=== PATIENT | female | born 1985 | race African-American/Black ===

== ENCOUNTER → 2016-07-10 | Outpatient (CLI) | payer BC ==
[~2016-07-10] MED LIST: FLEXERIL10 MG PO; MINASTRIN 24 F1 EACH PO; NAPROSYN500 MG PO
== END | disposition home or self-care (01) ==
LOC: RAD 15:00
DX: Z31.41 Encounter for fertility testing (principal); R94.8 Abnormal results of function studies of other organs and systems
CPT/HCPCS: 74740

== ENCOUNTER 2016-10-19 14:49 | Emergency (ER) | payer BC ==
[~2016-10-19] VITALS: Ht 175.3 cm; Wt 100.0 kg
[2016-10-19] MEDS ORDERED: VITAMIN B-6100 MG PO (15:07)
[2016-10-19 16:16] LABS: HEMATOCRIT 40.6 % (36.0-46.0); MCV 87.9 FL (83-99); MEAN PLAT.VOLUME 8.5 uM^3 (9.5-12.4); PLATELET COUNT 266 K/uL (156-360); RBC DIS.WIDTH-CV 13.9 % (11.8-14.6); RBC DIS.WIDTH-SD 44.7 % (39-53); RED BLOOD COUNT 4.62 M/uL (3.80-5.20); WHITE BLOOD COUNT 11.6 K/uL (4.1-10.2)
[2016-10-19 16:23] LABS: CHLORIDE 107 mEq/L (99-109); SODIUM 136 mEq/L (136-147)
[2016-10-19 16:25] LABS: GLUCOSE 94 mg/dL (70-99)
[2016-10-19 16:26] LABS: ANION GAP 8 MEQ/L (2-14)
[2016-10-19 16:26] LABS: ADD MIUA? NO; BILIRUBIN NEGATIVE; BLOOD NEGATIVE; COLOR YELLOW ((YELLOW)); GLUCOSE (STRIP) NEGATIVE; KETONES NEGATIVE; LEUKOCYTES NEGATIVE; NITRITE NEGATIVE; PROTEIN (STRIP) NEGATIVE; SPECIFIC GRAVITY 1.014 (1.000-1.030); UROBILINOGEN 0.2 MG/DL (0.2-1.0)
[2016-10-19 16:29] LABS: GFR ESTIMATE (CALCULATED) > 59 mL/min/
[2016-10-19 16:30] LABS: UREA NITROGEN (BUN) 8 mg/dL (9-23)
[2016-10-19 16:58] LABS: QUANTITATIVE HCG 139638.9 MIU/ML
[2016-10-19] MEDS ORDERED: ZOFRAN ODT4 MG PO (17:45)
[2016-10-19 18:10] VITALS: BP 115/60
== END 2016-10-19 18:20 | disposition home or self-care (01) ==
LOC: EME 14:49
PROVIDERS: Physician Assistant
DX: O21.9 Vomiting of pregnancy, unspecified (principal); R11.0 Nausea; Z3A.00 Weeks of gestation of pregnancy not specified; Z91.013 Allergy to seafood
CPT/HCPCS: 80048; 81003; 84702; 85027; 99281; 99284; J2405; J7030